=== PATIENT | male | born 1940 | race Two or more races ===

== ENCOUNTER 2020-05-16 07:00 | Inpatient (IN) | payer OTHER ==
[~2020-05-16] VITALS: Ht 325.1 cm; Wt 90.9 kg
[2020-05-16] VITALS (9 sets, daily range): BP systolic 83–147; BP diastolic 55–86
[~2020-05-16 07:00] MED LIST: CARB200T PO; METF-370 PO; SIMV-8 PO; TIMO0.5S66 LEFTEYE; TRAM50TA2 PO
[2020-05-16] MEDS ORDERED: CELECOXIB 100 MG CAP PO ONE (11:15)
[2020-05-16] MEDS ORDERED: ceFAZolin 1GM 2 GM in D5W 5% 100 ML IV ONE (11:15)
[2020-05-16] MEDS ORDERED: PREGABALIN CAPSULE 75 MG CAP PO ONE (11:15)
[2020-05-16] MEDS ORDERED: ACETAMINOPHEN IV 1000 MG/100ML (10MG/ML) IV ONE (11:15)
[2020-05-16] MEDS ORDERED: ceFAZolin 1GM/50ML 100 ML IV ONE (11:25)
[2020-05-16] MEDS ORDERED: TRANEXAMIC ACID 20 ML ONE (12:00)
[2020-05-16] MEDS ORDERED: BUPIVACAINE 0.25% INJ 50ML VIAL ONE (12:00)
[2020-05-16] MEDS ORDERED: VANCOMYCIN HCL 1000 MG VL ONE (12:02)
[2020-05-16] MEDS ORDERED: KETOROLAC TROMETH 30 MG/ML 1ML VIAL ONE (12:06)
[2020-05-16] MEDS ORDERED: MORPHINE SULF(PF) 0.5MG/ML 10ML VIAL ONE ×2 (12:06→12:28)
[2020-05-16] MEDS ORDERED: TETRACAINE 1% INJ 2 ML VIAL IJ ONE (12:17)
[2020-05-16] MEDS ORDERED: SUCCINYLCHOLINE CHLORIDE 20 MG/ML 10ML VIAL IV ONE (12:29)
[2020-05-16] MEDS ORDERED: fentaNYL CITRATE 100 MCG/2 ML VL ONE (12:31)
[2020-05-16] MEDS ORDERED: MIDAZOLAM HCL 1MG/1ML-2 ML VIAL ONE (12:31)
[2020-05-16] MEDS ORDERED: EPINEPHrine HCL 1 MG/1 ML AMP ONE (12:33)
[2020-05-16] MEDS: ceFAZolin 1GM/50ML 50 ML IV SCH ×2 (14:15→19:48)
[2020-05-16] MEDS ORDERED: OXYCODONE W/ ACETAMINOPHEN 5/325MG TABLET PO PRN (14:15)
[2020-05-16] MEDS: LACTATED RINGER'S 1,000 ML IV SCH ×2 (14:15→19:48)
[2020-05-16] MEDS ORDERED: NITROGLYCERIN 0.4 MG SL TAB SL PRN (14:15)
[2020-05-16] MEDS ORDERED: traMADol HCL 50 MG TAB PO PRN (14:15)
[2020-05-16] MEDS ORDERED: MORPHINE SULF INJ 2 MG/ML SYRINGE 1ML IV PRN (14:15)
[2020-05-16] MEDS ORDERED: DEXTROSE (50%) 50ML SYRG IV PRN (14:15)
[2020-05-16] MEDS ORDERED: ONDANSETRON HCL 4 MG/2 ML VIAL ONE (14:35)
[2020-05-16] MEDS ORDERED: ONDANSETRON HCL 4 MG/2 ML VIAL IV PRN (15:00)
[2020-05-16] MEDS: InsuLIN REG 1unit/0.01ml Soln (100units/ml) SC SCH ×2 (17:00→23:26)
[2020-05-16] MEDS: ACCU-CHEK COMFORT CURVE STRIP VI SCH ×2 (17:00→22:09)
[2020-05-16] MEDS: ONDANSETRON HCL 4 MG/2 ML VIAL IV PRN (17:40)
[2020-05-16] MEDS: KETOROLAC TROMETH 30 MG/ML 1ML VIAL IV SCH (18:33)
[2020-05-16] MEDS: metFORMIN HYDROCHLORIDE 500 MG TAB PO SCH (18:33)
[2020-05-16] MEDS ORDERED: PROMETHAZINE HCL 25 MG/ML 1ML IV PRN (20:00)
[2020-05-16] MEDS: DOCUSATE SOD 100 MG CAP PO SCH ×2 (22:00→22:10)
[2020-05-16] MEDS: carBAMazepine 200 MG TAB PO SCH ×2 (22:00→22:09)
[2020-05-16] MEDS: SODIUM CHLOR 0.9% PF (SALINE LOCK) 10ML VIAL/SYR IV SCH (22:10)
[2020-05-16] MEDS: ATORVASTATIN 20 MG TAB PO SCH (22:11)
[2020-05-17] VITALS (14 sets, daily range): BP systolic 72–155; BP diastolic 46–111
[2020-05-17] MEDS: ceFAZolin 1GM/50ML 50 ML IV SCH (02:15)
[2020-05-17] MEDS: KETOROLAC TROMETH 30 MG/ML 1ML VIAL IV SCH ×4 (06:00→17:21)
[2020-05-17] MEDS: SODIUM CHLOR 0.9% PF (SALINE LOCK) 10ML VIAL/SYR IV SCH ×3 (06:00→21:28)
[2020-05-17] MEDS: metFORMIN HYDROCHLORIDE 500 MG TAB PO SCH ×2 (06:39→17:21)
[2020-05-17] MEDS: ACCU-CHEK COMFORT CURVE STRIP VI SCH ×4 (06:39→21:28)
[2020-05-17 06:44] LABS: Hematocrit 32.2 % (41.0-53.0); Hemoglobin 11.2 g/dL (13.5-17.5)
[2020-05-17] MEDS: InsuLIN REG 1unit/0.01ml Soln (100units/ml) SC SCH ×4 (06:53→21:28)
[2020-05-17 07:09] LABS: Albumin 2.7 g/dL (3.4-5.0); BUN/Creatinine Ratio 23.5; Calcium 7.4 mg/dL (8.5-10.1); Potassium 3.9 mmol/L (3.5-5.1)
[2020-05-17 07:12] LABS: Bilirubin, Total 0.5 mg/dL (0.2-1.0); Total Protein 5.6 g/dL (6.4-8.2)
[2020-05-17] MEDS ORDERED: SODIUM CHLORIDE IV ONE (09:16)
[2020-05-17] MEDS ORDERED: PHENYLEPHRINE IV ONE (09:16)
[2020-05-17] MEDS: LACTATED RINGER'S 1,000 ML IV SCH ×2 (10:15→21:28)
[2020-05-17] MEDS: HYDROmorphone HCL 2 MG/ML VL IV PRN (10:18)
[2020-05-17] MEDS: DOCUSATE SOD 100 MG CAP PO SCH ×2 (10:19→21:37)
[2020-05-17] MEDS: ONDANSETRON HCL 4 MG/2 ML VIAL IV PRN (10:19)
[2020-05-17] MEDS: ENOXAPARIN SOD 40 MG/0.4 ML SYRINGE SC SCH (10:19)
[2020-05-17] MEDS: carBAMazepine 200 MG TAB PO SCH ×2 (10:19→21:37)
[2020-05-17] MEDS: TIMOLOL MAL 0.5% OPTH(EYE) SOL 5ML LEFTEYE SCH (10:27)
[2020-05-17] MEDS: ATORVASTATIN 20 MG TAB PO SCH (21:37)
[2020-05-18] MEDS: KETOROLAC TROMETH 30 MG/ML 1ML VIAL IV SCH (00:33)
[2020-05-18 05:16] VITALS: BP 128/74
[2020-05-18] MEDS: SODIUM CHLOR 0.9% PF (SALINE LOCK) 10ML VIAL/SYR IV SCH ×2 (05:31→13:46)
[2020-05-18] MEDS: LACTATED RINGER'S 1,000 ML IV SCH ×2 (05:31→16:15)
[2020-05-18 06:23] LABS: Hematocrit 34.6 % (41.0-53.0); Hemoglobin 12.1 g/dL (13.5-17.5)
[2020-05-18] MEDS: metFORMIN HYDROCHLORIDE 500 MG TAB PO SCH (06:46)
[2020-05-18] MEDS: InsuLIN REG 1unit/0.01ml Soln (100units/ml) SC SCH ×3 (06:46→17:00)
[2020-05-18] MEDS: ACCU-CHEK COMFORT CURVE STRIP VI SCH ×3 (06:47→17:00)
[2020-05-18 09:03] VITALS: BP 127/68
[2020-05-18] MEDS: TIMOLOL MAL 0.5% OPTH(EYE) SOL 5ML LEFTEYE SCH (10:00)
[2020-05-18] MEDS: DOCUSATE SOD 100 MG CAP PO SCH (10:00)
[2020-05-18] MEDS: ENOXAPARIN SOD 40 MG/0.4 ML SYRINGE SC SCH (10:00)
[2020-05-18] MEDS: carBAMazepine 200 MG TAB PO SCH (10:00)
[2020-05-18] MEDS: HYDROmorphone HCL 2 MG/ML VL IV PRN (10:43)
[2020-05-18 13:00] VITALS: BP 129/73
[2020-05-18 16:27] VITALS: BP 129/73
[2020-05-18 16:40] VITALS: BP 132/85
== END 2020-05-18 16:45 | disposition home health service (06) | DRG 470 ==
LOC: OVERFLOW 11:03 → EDSTATUS 11:45 → TELE-WESTW 16:53
PROVIDERS: ADMIT Orthopaedic Surgery; ATTEND Orthopaedic Surgery
PROC: 0QBB0ZZ Excision of Right Lower Femur, Open Approach (ICD-10-PCS; 2020-05-16)
PROC: 0SRC069 Replacement of Right Knee Joint with Oxidized Zirconium on Polyethylene Synthetic Substitute, Cemented, Open Approach (ICD-10-PCS; principal; 2020-05-16 12:35)
DX: M17.11 Unilateral primary osteoarthritis, right knee (principal); Z20.822 Contact with and (suspected) exposure to COVID-19; E78.5 Hyperlipidemia, unspecified; M89.9 Disorder of bone, unspecified; E11.9 Type 2 diabetes mellitus without complications
CPT/HCPCS: 36415; 73560; 80053; 82962; 85014; 85018; 86850; 86900; 86901; 97110; 97116; 97530; C1713; G0378; J0131; J0171; J0330; J0690; J1815; J1885; J2250; J2405; J3490; J7060